=== PATIENT | female | born 1980 | race Hispanic/Latino ===

== ENCOUNTER → 2017-04-18 | Outpatient (CLI) | payer OTHER ==
[~2017-04-18] MED LIST: IBUP80TA PO; LABE20TAB PO; PERCOCET PO; VITAPRTA PO
[2017-04-18 19:28] LABS: BASO % 0.3 % (0.0-1.0); EOS # 0.1 K/mm3 (0.0-0.50); LARGE UNSTAINED CELL # 0.1 K/mm3 (0.0-0.4); LARGE UNSTAINED CELL % 1.2 % (0.0-4.0); LYMPH # 1.8 K/mm3 (1.5-4.5); LYMPH % 16.6 % (24.0-44.0); MEAN CORPUSCULAR HEMOGLOBIN 28.2 pg (27.0-33.0); MEAN CORPUSCULAR HGB CONC 33.1 g/dl (32.0-36.5); MEAN CORPUSCULAR VOLUME 85.3 fl (80.0-96.0); MONO # 0.4 K/mm3 (0.0-0.8); MONO % 3.8 % (0.0-5.0); NEUTROPHILS # 7.8 K/mm3 (1.8-7.7); PLATELET COUNT, AUTOMATED 291 k/mm3 (150-450); RED CELL DISTRIBUTION WIDTH 13.2 % (11.5-14.5); WHITE BLOOD COUNT 10.1 K/mm3 (4.0-10.0)
[2017-04-20 09:37] LABS: HBsAg Prenatal NEGATIVE (NEGATIVE)
== END ==
LOC: M SMT 14:26
PROVIDERS: ATTEND Obstetrics & Gynecology
DX: Z36 Encounter for antenatal screening of mother (principal); Z3A.00 Weeks of gestation of pregnancy not specified

== ENCOUNTER → 2017-05-12 | Outpatient (CLI) | payer OTHER | LOC: M SMT 13:10 | PROVIDERS: ATTEND Obstetrics & Gynecology | DX: Z36 Encounter for antenatal screening of mother (principal); Z3A.00 Weeks of gestation of pregnancy not specified ==

== ENCOUNTER → 2017-05-17 | Outpatient (CLI) | payer MEDICAID, OTHER | LOC: M LAB 07:25 | PROVIDERS: ATTEND Obstetrics & Gynecology | DX: Z36 Encounter for antenatal screening of mother (principal); Z3A.00 Weeks of gestation of pregnancy not specified ==

== ENCOUNTER → 2017-07-13 | Outpatient (REF) | payer OTHER | LOC: M LAB REF 14:25 | PROVIDERS: ATTEND Physician Assistant | DX: J02.9 Acute pharyngitis, unspecified (principal) ==

== ENCOUNTER → 2017-07-15 | Outpatient (CLI) | payer MEDICAID, OTHER ==
--- NOTE | 2017-07-15 11:23 | REP ---
Clinical: Anatomical evaluation. Comparison: None . Findings: Examination demonstrates a single live intrauterine in breech presentation. motion is identified by technologist. Placenta is noted posteriorly and grade zero without evidence for placenta previa or abruption. Amniotic fluid volume is normal. Cervix measures 4.3 cm in length and appears closed. No evidence for nuchal cord. Gestational age by LMP 18 weeks 5-day with BETH 12/11/2017 . Gestational age by current measurements 19 weeks 0 days with BETH 12/09/2017 . FHR equals 139 beats per minute. BPD 4.4 cm 19 weeks 2 day HC 15.8 18 weeks 4 days AC 13.9 cm 19 weeks 2 days FL 2.9 cm 18 weeks 5 day HL 2.8 cm 19 weeks 0 days HC/AC ratio 1.14 Estimated weight 268 grams ( 57th percentile). Anatomical assessment demonstrates normal structures including cranium, choroid plexus, cavum, cerebellum/posterior fossa, lungs, diaphragm, stomach, cord insertion/three-vessel cord, bladder, and extremities. Impression: Single live intrauterine in breech presentation demonstrating appropriate interval growth. Limited evaluation of the facial features, heart/ventricular outflow tracts, kidneys and spine warrants reevaluation and follow-up. Signed by Oscar Anand MD 07/15/2017 11:14 A
== END ==
LOC: M RAD 09:39
PROVIDERS: ATTEND Obstetrics & Gynecology
DX: Z36 Encounter for antenatal screening of mother (principal); Z3A.19 19 weeks gestation of pregnancy

== ENCOUNTER → 2017-08-15 | Outpatient (CLI) | payer OTHER ==
--- NOTE | 2017-08-15 11:07 | REP ---
OBSTETRIC SONOGRAPHY: HISTORY: Supervision of followup anatomy. Comparison study July 15, 2017. FINDINGS: Scanning through the gravid uterus demonstrates a viable single intrauterine gestation in a transverse lie, head to the maternal right. motion is observed and heart rate is recorder 141 beats per minute. A right posterolateral placenta is seen grade 1 without evidence of previa or abruption. Amniotic fluid is subjectively normal. Closed cervical length is 4.8 cm. No extrauterine abnormalities observed. There has been appropriate interval growth. Exam quality is somewhat inhibited by maternal body habitus and position. No abnormality is seen. There is still less than optimal visualization of the heart today and spine. The following additional anatomic structures are identified and felt to be sonographically unremarkable: cranium, cavum, face and profile, lungs, diaphragm, left-sided stomach, abdominal wall cord insertion, three-vessel umbilical cord, kidneys and bladder, upper and lower extremities. BIOMETRY CHART: BPD 5.6 cm = 23 weeks 0 days HC e 21.4 cm = 23 weeks 3 days AC 18.7 cm = 23 weeks 4 days FL 4.8 cm = 25 weeks 6 days HL 4.1 cm = 24 weeks 5 days HC/AC ratio normal 1.14. Cephalic index normal 0.71. Estimated weight 688 grams, 1 pound 8 ounces, 86th percentile for 23 weeks 1 day. IMPRESSION: Viable single intrauterine gestation at 24 weeks 1 day by today's composite sonographic criteria. Expected gestational age estimate based on prior sonography is 23 weeks 3 days. BETH by prior sonography December 09, 2017. cardiac structures and spine still less than optimally seen. Signed by Wayne Lorenzo MD 08/15/2017 01:18 P
== END ==
LOC: M RAD 09:12
PROVIDERS: ATTEND Obstetrics & Gynecology
DX: Z36.89 Encounter for other specified antenatal screening (principal); Z3A.24 24 weeks gestation of pregnancy

== ENCOUNTER → 2017-08-23 | Outpatient (CLI) | payer OTHER ==
[2017-08-23 17:16] LABS: MEAN CORPUSCULAR HEMOGLOBIN 27.4 pg (27.0-33.0); MEAN CORPUSCULAR HGB CONC 32.9 g/dl (32.0-36.5); MEAN CORPUSCULAR VOLUME 83.3 fl (80.0-96.0); RED CELL DISTRIBUTION WIDTH 13.4 % (11.5-14.5); WHITE BLOOD COUNT 10.5 10^3/uL (4.0-10.0)
== END ==
LOC: M SMT 14:28
PROVIDERS: ATTEND Obstetrics & Gynecology
DX: Z36.89 Encounter for other specified antenatal screening (principal); Z3A.00 Weeks of gestation of pregnancy not specified

== ENCOUNTER → 2017-09-15 | Outpatient (CLI) | payer OTHER ==
--- NOTE | 2017-09-15 15:17 | REP ---
Obstetric ultrasound for follow-up anatomy: On prior studies the four-chamber view of the heart, cardiac right and left ventricular outflow tracts and spine were not optimally demonstrate There is a single intrauterine gestation in a breech presentation. There is motion. heart rate is 136 beats per minute. The placenta is fundal and right lateral without previa or abruptio and with grade 1 maturity. The amniotic fluid volume subjectively is normal. The amniotic fluid index is 11.9 (9.4 - 22.7). Gestational age by the ultrasound today is 28 weeks 2 days. Gestational age by the first ultrasound is 27 weeks 6 days with an BETH of 12/09/2017. Gestational age by LMP is 27 weeks 4 days. weight is 1222 grams (2 pounds, 11 ounces). This is the 62nd percentile for 27 weeks 4 days. S/D ratio 4.57 (2.30-3.30) Resistive Index 0.78 (0.59-0.75 Diastolic Velocity 8.3 (>10 cm/sec) . These values are slightly outside their normal ranges and may indicate early fetoplacental circulation compromise. Follow-up is recommended. weight is at the 62nd percentile. The four-chamber view of the heart and the cardiac right and left ventricular outflow tracts are adequately demonstrated and unremarkable. The spine is adequately demonstrated and unremarkable. The remainder of the anatomy previously demonstrated and unremarkable. There are no anomalies. Signed by Ayad Tillman MD 09/15/2017 03:08 P
== END ==
LOC: M RAD 12:16
PROVIDERS: ATTEND Obstetrics & Gynecology
DX: Z34.82 Encounter for supervision of other normal pregnancy, second trimester (principal); Z87.51 Personal history of pre-term labor; Z3A.00 Weeks of gestation of pregnancy not specified

== ENCOUNTER → 2017-10-13 | Outpatient (CLI) | payer OTHER ==
--- NOTE | 2017-10-13 20:41 | REP ---
LIMITED OBSTETRICAL ULTRASOUND: CLINICAL: well being and growth evaluation. COMPARISON: 09/15/2017 FINDINGS: Ultrasound examination demonstrates a single live advanced gestation in breech presentation. motion was identified by technologist. Placenta is noted fundally and grade 1 without evidence for placenta previa or abruption. Amniotic fluid volume is within normal limits. Cervix measures 4.5 cm in length and appears closed. Gestational age by LMP 31 weeks 4 days with estimated date of delivery 12/11/2017. Gestational age by current measurements 30 weeks 4 days with estimated date of delivery 12/18/2017. FHR 129 beats per minute. BPD 7.8 cm = 31 weeks 1 day HC 27.9 cm = 30 weeks 4 days AC 26.3 cm = 30 weeks 3 days FL 5.8 cm = 30 weeks 1 day HL 5.2 cm = 30 weeks 3 days HC/AC ratio 1.06. Estimated weight 1570 grams, 20th percentile based on age by LMP. Biophysical profile score equals 8 out of 8. Amniotic fluid index equals 15.8 cm (8.7 - 24.0). Umbilical cord S/D ratio equals 2.23. IMPRESSION: Single live advanced gestation in breech presentation demonstrating appropriate interval growth. Biophysical profile score equals 8 out of 8. Amniotic fluid volume normal. Signed by Oscar Anand MD 10/14/2017 07:24 A
== END ==
LOC: M RAD 12:46
PROVIDERS: ATTEND Obstetrics & Gynecology
DX: O24.410 Gestational diabetes mellitus in pregnancy, diet controlled (principal); Z3A.31 31 weeks gestation of pregnancy

== ENCOUNTER → 2017-10-19 | Outpatient (CLI) | payer OTHER ==
--- NOTE | 2017-10-19 15:21 | REP ---
OB ULTRASOUND/BIOPHYSICAL PROFILE: Real-time sonographic evaluation of gravid uterus performed. There is a single living intrauterine gestation. Estimated gestational age is 32 weeks 3 days, EDC 12/11/2017. heart rate 142 beats per minute. Amniotic fluid is low, with mild oligohydramnios. ERICH is 4.8, below normal range of 8.5 to 24.3. S/D ratio umbilical artery 4.37 is above normal range of 2.3 to 3.3. RI 0.77 is above normal range of 0.59 to 0.75. S/D ratio middle cerebral artery 4.95 with RI 0.80. position vertex. Biophysical profile score is 8 out of 8. Placenta is posterior and fundal, grade 1 with no previa or abruption. Signed by Ayad Rome MD 10/20/2017 09:15 A
== END ==
LOC: M RAD 13:30
PROVIDERS: ATTEND Obstetrics & Gynecology
DX: O24.410 Gestational diabetes mellitus in pregnancy, diet controlled (principal); Z3A.32 32 weeks gestation of pregnancy

== ENCOUNTER → 2017-10-26 | Outpatient (CLI) | payer OTHER ==
--- NOTE | 2017-10-26 19:52 | REP ---
Clinical: well-being. Biophysical profile. Comparison: 10/19/2017. Findings: Ultrasound examination demonstrates single live A advanced gestation in breech presentation. motion was identified by technologist. Placenta is noted posterior fundal and grade 1 without evidence for placenta previa. Cervix measures 2.7 cm in length and appears closed. Gestational age by LMP: 33 weeks 3 days. heart rate: 140 bpm. Biophysical profile: 8/8. Amniotic fluid index: 12.3 cm (8.2 - 24.6). Umbilical cord SD ratio: 3.09 Impression: Single live advanced gestation in breech presentation. Biophysical profile score equals 8/8. Signed by Oscar Anand MD 10/26/2017 04:43 P
== END ==
LOC: M RAD 13:23
PROVIDERS: ATTEND Obstetrics & Gynecology
DX: O24.410 Gestational diabetes mellitus in pregnancy, diet controlled (principal); Z3A.33 33 weeks gestation of pregnancy

== ENCOUNTER → 2017-11-02 | Outpatient (CLI) | payer OTHER | LOC: M RAD 07:44 | DX: O24.410 Gestational diabetes mellitus in pregnancy, diet controlled (principal); Z3A.31 31 weeks gestation of pregnancy | CPT/HCPCS: 76819 ==

== ENCOUNTER → 2017-11-14 | Outpatient (REF) | payer OTHER | LOC: M LAB REF 17:05 | DX: Z34.83 Encounter for supervision of other normal pregnancy, third trimester (principal) | CPT/HCPCS: 87081 ==

== ENCOUNTER → 2017-11-16 | Outpatient (CLI) | payer OTHER ==
[2017-11-16 11:52] LABS: HEMATOCRIT 38.9 % (36.0-47.0); HEMOGLOBIN 12.8 g/dl (12.0-16.0); MEAN CORPUSCULAR HEMOGLOBIN 27.1 pg (27.0-33.0); MEAN CORPUSCULAR HGB CONC 32.9 g/dl (32.0-36.5); MEAN CORPUSCULAR VOLUME 82.4 fl (80.0-96.0); PLATELET COUNT, AUTOMATED 321 10^3/uL (150-450); RED BLOOD COUNT 4.72 10^6/uL (4.00-5.40); RED CELL DISTRIBUTION WIDTH 14.6 % (11.5-14.5); WHITE BLOOD COUNT 10.7 10^3/uL (4.0-10.0)
[2017-11-16 12:13] LABS: CREATININE, SERUM 0.8 MG/DL (0.6-1.0); TOTAL VOLUME, URINE 1600 ML
[2017-11-16 12:20] LABS: ALBUMIN 2.6 GM/DL (3.2-5.2); ALBUMIN/GLOBULIN RATIO 0.63 (1.00-1.93); ALKALINE PHOSPHATASE 101 U/L (45-117); ALT/SGPT 45 U/L (12-78); ANION GAP 7 MEQ/L (8-16); AST/SGOT 27 U/L (7-37); BILIRUBIN,TOTAL 0.2 MG/DL (0.2-1.0); BLOOD UREA NITROGEN 13 MG/DL (7-18); CALCIUM LEVEL 8.9 MG/DL (8.5-10.1); CARBON DIOXIDE LEVEL 26 MEQ/L (21-32); CHLORIDE LEVEL 107 MEQ/L (98-107); CREATININE FOR GFR 0.79 MG/DL (0.55-1.02); GLOMERULAR FILTRATION RATE > 60.0 (>60); GLUCOSE, FASTING 72 MG/DL (70-105); POTASSIUM SERUM 4.2 MEQ/L (3.5-5.1); SODIUM LEVEL 140 MEQ/L (136-145); TOTAL PROTEIN 6.7 GM/DL (6.4-8.2); URIC ACID 5.8 MG/DL (2.6-6.0)
[2017-11-16 13:04] LABS: CREATININE CLEARANCE, URINE 226.4 ML/MIN (75-115); TOTAL PROTEIN 24 HOUR URINE 268.8 MG/24HR (50-150); URINE TOTAL PROTEIN 16.8 MG/DL (0-12)
== END ==
LOC: M LAB 11:19
DX: O13.3 Gestational [pregnancy-induced] hypertension without significant proteinuria, third trimester (principal); Z3A.00 Weeks of gestation of pregnancy not specified
CPT/HCPCS: 82575

== ENCOUNTER → 2017-11-18 | Outpatient (CLI) | payer OTHER | LOC: M RAD 12:28 | DX: Z36.4 Encounter for antenatal screening for fetal growth retardation (principal); Z3A.36 36 weeks gestation of pregnancy | CPT/HCPCS: 76816 ==

== ENCOUNTER 2017-11-21 12:15 | Inpatient (IN) | payer OTHER ==
[2017-11-21] MEDS: BICITRA 30ML SOLN UDC PO (12:45)
[2017-11-21] MEDS: LR 500 ML IV (13:10)
[2017-11-21] MEDS: LR 1,000 ML IV ×2 (13:11→20:17)
[2017-11-21 13:22] LABS: HEMATOCRIT 41.4 % (36.0-47.0); HEMOGLOBIN 13.7 g/dl (12.0-16.0); MEAN CORPUSCULAR HEMOGLOBIN 27.2 pg (27.0-33.0); MEAN CORPUSCULAR HGB CONC 33.1 g/dl (32.0-36.5); MEAN CORPUSCULAR VOLUME 82.1 fl (80.0-96.0); PLATELET COUNT, AUTOMATED 340 10^3/uL (150-450); RED BLOOD COUNT 5.04 10^6/uL (4.00-5.40); RED CELL DISTRIBUTION WIDTH 14.9 % (11.5-14.5); WHITE BLOOD COUNT 11.1 10^3/uL (4.0-10.0)
[2017-11-21 13:50] LABS: AMPHETAMINES URINE REFLEX NEGATIVE (NEGATIVE); BARBITURATES URINE REFLEX NEGATIVE (NEGATIVE); BENZODIAZEPINES URINE REFLEX NEGATIVE (NEGATIVE); CANNABINOIDS URINE REFLEX NEGATIVE (NEGATIVE); COCAINE METABOLITE URINE REFLE NEGATIVE (NEGATIVE); METHADONE URINE REFLEX NEGATIVE (NEGATIVE); OPIATES URINE REFLEX NEGATIVE (NEGATIVE); PHENCYCLIDINE URINE REFLEX NEGATIVE (NEGATIVE)
[2017-11-21 13:53] LABS: ALT/SGPT 54 U/L (12-78); AST/SGOT 38 U/L (7-37); BILIRUBIN,TOTAL 0.3 MG/DL (0.2-1.0); CREATININE FOR GFR 0.82 MG/DL (0.55-1.02); GLOMERULAR FILTRATION RATE > 60.0 (>60); LDH LACTATE DEHYDROGENASE 190 U/L (84-246); URIC ACID 6.1 MG/DL (2.6-6.0)
[2017-11-21] MEDS ORDERED: ceFAZolin 2 GM/D5W 50 ML IV BAG (J0690 PER 500MG) As Ordered (14:35)
[2017-11-21] MEDS ORDERED: OXYTOCIN INJ 10 UNITS/ML VIAL (J2590) As Ordered (15:15)
[2017-11-21] MEDS ORDERED: ONDANSETRON 4MG/2ML VIAL (J2405) As Ordered (15:15)
[2017-11-21] MEDS ORDERED: dexameTHASONE 4 MG/ML 1ML VIAL (J1100) As Ordered (15:15)
[2017-11-21] MEDS ORDERED: fentaNYL 100 MCG/2 ML INJECTION (J3010) As Ordered (15:16)
[2017-11-21] MEDS ORDERED: MORPHINE PRES-FREE INJ 10 MG/10 ML VIAL (J2274) As Ordered (15:16)
[2017-11-21] MEDS ORDERED: ceFAZolin 1GM INJ (J0690 PER 500MG) As Ordered (16:09)
[2017-11-21] MEDS ORDERED: KETOROLAC 60 MG/2 ML VIAL (J1885) As Ordered (16:19)
[2017-11-21] MEDS ORDERED: PHENYLephrine HCL 500 MCG/5 ML (100MCG/ML) SYRINGE (J2370) As Ordered (17:08)
[2017-11-21] MEDS ORDERED: ePHEDrine INJ 50 MG/ML VIAL As Ordered (17:09)
[2017-11-21] MEDS: OXYTOCIN DRIP 30 UNITS in APPROPRIATE DILUENT 1 EA IV (17:32)
[2017-11-21] MEDS ORDERED: PROMETHAZINE 25 MG TAB PO (17:45)
[2017-11-21] MEDS ORDERED: ONDANSETRON 4MG/2ML VIAL (J2405) IV ×2 (17:45→18:00)
[2017-11-21] MEDS ORDERED: NALBUPHINE HCL 10 MG/ML AMP (J2300) IV (18:00)
[2017-11-21] MEDS ORDERED: fentaNYL 100 MCG/2 ML INJECTION (J3010) IV (18:00)
[2017-11-21] MEDS: MEASLES,MUMPS,RUBELLA VACCINE INJ (MMR-II) (90707) SC (19:09)
[2017-11-21] MEDS: RHOGAM 300 MCG (1500 IU) INJ (J2790) IM (19:10)
[2017-11-21] MEDS: LABETALOL HCL 100 MG/20 ML VIAL IV ×2 (20:37→23:25)
[2017-11-21] MEDS: DOCUSATE SODIUM 100 MG CAP PO (21:00)
[2017-11-21] MEDS: LABETALOL 200 MG TAB PO (21:04)
[2017-11-21] MEDS: KETOROLAC 30 MG/ML VIAL (J1885) IV (22:33)
[2017-11-21] MEDS: PERCOCET 5MG/325MG TAB PO (23:50)
[2017-11-22] MEDS: LR 1,000 ML IV (04:14)
[2017-11-22] MEDS: KETOROLAC 30 MG/ML VIAL (J1885) IV ×2 (04:53→11:12)
[2017-11-22] MEDS: PERCOCET 5MG/325MG TAB PO ×3 (05:00→21:11)
[2017-11-22 07:17] LABS: HEMATOCRIT 32.8 % (36.0-47.0); MEAN CORPUSCULAR HEMOGLOBIN 27.2 pg (27.0-33.0); MEAN CORPUSCULAR HGB CONC 32.6 g/dl (32.0-36.5); MEAN CORPUSCULAR VOLUME 83.5 fl (80.0-96.0); PLATELET COUNT, AUTOMATED 241 10^3/uL (150-450); RED BLOOD COUNT 3.93 10^6/uL (4.00-5.40); RED CELL DISTRIBUTION WIDTH 14.9 % (11.5-14.5); WHITE BLOOD COUNT 9.4 10^3/uL (4.0-10.0)
[2017-11-22 07:21] LABS: HEMOGLOBIN 10.7 g/dl (12.0-16.0)
[2017-11-22] MEDS: DOCUSATE SODIUM 100 MG CAP PO ×2 (09:11→21:00)
[2017-11-22] MEDS: PRENATAL VITAMINS CHEWABLE TABLET PO (09:11)
[2017-11-22] MEDS: LABETALOL 200 MG TAB PO ×2 (09:13→20:59)
[2017-11-22] MEDS: SLF 3 ML SYR IV (14:09)
[2017-11-22] MEDS: IBUPROFEN 800 MG TAB PO (18:00)
[2017-11-23] MEDS: PERCOCET 5MG/325MG TAB PO ×4 (02:33→20:53)
[2017-11-23] MEDS: IBUPROFEN 800 MG TAB PO ×2 (02:33→16:26)
[2017-11-23] MEDS: PRENATAL VITAMINS CHEWABLE TABLET PO (09:00)
[2017-11-23] MEDS: LABETALOL 200 MG TAB PO ×2 (10:13→20:54)
[2017-11-23] MEDS: DOCUSATE SODIUM 100 MG CAP PO ×2 (10:14→20:53)
[2017-11-24] MEDS: IBUPROFEN 800 MG TAB PO ×2 (01:21→09:00)
[2017-11-24] MEDS: PERCOCET 5MG/325MG TAB PO ×2 (01:27→07:17)
[2017-11-24] MEDS: PRENATAL VITAMINS CHEWABLE TABLET PO (09:00)
[2017-11-24] MEDS: DOCUSATE SODIUM 100 MG CAP PO (09:00)
[2017-11-24] MEDS: LABETALOL 200 MG TAB PO (09:00)
== END 2017-11-24 09:40 | disposition home or self-care (01) | DRG 540 ==
LOC: M LDI 12:15 → M OBS 18:44
PROC: 10D00Z1 Extraction of Products of Conception, Low, Open Approach (ICD-10-PCS; principal; 2017-11-21 16:05)
DX: O32.1XX0 Maternal care for breech presentation, not applicable or unspecified (principal); O14.14 Severe pre-eclampsia complicating childbirth; O24.410 Gestational diabetes mellitus in pregnancy, diet controlled; Z3A.37 37 weeks gestation of pregnancy; Z37.0 Single live birth

== ENCOUNTER → 2018-05-23 | Outpatient (REF) | payer OTHER ==
[2018-05-23 14:37] LABS: ALBUMIN 3.5 GM/DL (3.2-5.2); ALBUMIN/GLOBULIN RATIO 0.85 (1.00-1.93); ALKALINE PHOSPHATASE 77 U/L (45-117); ALT/SGPT 35 U/L (12-78); ANION GAP 9 MEQ/L (8-16); AST/SGOT 20 U/L (7-37); BILIRUBIN,TOTAL 0.7 MG/DL (0.2-1.0); BLOOD UREA NITROGEN 16 MG/DL (7-18); CALCIUM LEVEL 8.8 MG/DL (8.5-10.1); CARBON DIOXIDE LEVEL 27 MEQ/L (21-32); CHLORIDE LEVEL 104 MEQ/L (98-107); CHOLESTEROL LEVEL 172 MG/DL (<200); CHOLESTEROL RISK RATIO 3.071 (<5); CREATININE FOR GFR 0.94 MG/DL (0.55-1.30); GLOMERULAR FILTRATION RATE > 60.0 (>60); GLUCOSE, FASTING 108 MG/DL (70-100); HDL CHOLESTEROL 56 MG/DL (>40); LDL CHOLESTEROL 91.4 MG/DL (<100); NON-HDL-C 116 MG/DL; POTASSIUM SERUM 3.8 MEQ/L (3.5-5.1); SODIUM LEVEL 140 MEQ/L (136-145); TOTAL PROTEIN 7.6 GM/DL (6.4-8.2); TRIGLYCERIDES LEVEL 123 MG/DL (<150)
== END ==
LOC: M LAB REF 13:45
DX: I10 Essential (primary) hypertension (principal)

== ENCOUNTER → 2019-02-27 | Outpatient (CLI) | payer OTHER ==
[~2019-02-27] MED LIST changes: +ASPI81TA85 PO; +COLA100C5 PO; +MAPA500T2 PO; +OXYC1TAB23 PO
[2019-02-27 19:47] LABS: TOTAL PROTEIN,RANDOM URINE < 5.0 MG/DL (0.0-12.0)
[2019-02-27 20:23] LABS: ALT/SGPT 21 U/L (12-78); BILIRUBIN,TOTAL 0.2 MG/DL (0.2-1.0); CREATININE FOR GFR 0.71 MG/DL (0.55-1.30); GLOMERULAR FILTRATION RATE > 60.0 (>60); LDH LACTATE DEHYDROGENASE 131 U/L (84-246); URIC ACID 3.5 MG/DL (2.6-6.0)
[2019-02-27 20:41] LABS: HEMOGLOBIN A1c 5.5 %
[2019-02-27 20:57] LABS: CHLAMYDIA DNA AMPLIFICATION NEGATIVE (NEGATIVE); GC DNA AMPLIFICATION NEGATIVE (NEGATIVE)
[2019-02-27 22:16] LABS: HEMATOCRIT 37.3 % (36.0-47.0); HEMOGLOBIN 12.1 g/dl (12.0-15.5); MEAN CORPUSCULAR HEMOGLOBIN 26.8 pg (27.0-33.0); MEAN CORPUSCULAR HGB CONC 32.4 g/dl (32.0-36.5); MEAN CORPUSCULAR VOLUME 82.5 fl (80.0-96.0); RED BLOOD COUNT 4.52 10^6/uL (4.00-5.40); WHITE BLOOD COUNT 7.5 10^3/uL (4.0-10.0)
[2019-02-27 22:17] LABS: BASO % 0.3 % (0.0-1.0); EOS # 0.1 10^3/uL (0.0-0.50); EOS % 1.2 % (0.0-3.0); LYMPH # 1.8 10^3/uL (1.5-4.5); LYMPH % 24.1 % (24.0-44.0); MONO # 0.4 10^3/uL (0.0-0.8); MONO % 5.4 % (0.0-5.0); NEUTROPHILS # 5.1 10^3/uL (1.8-7.7); NEUTROPHILS % 68.6 % (36.0-66.0); PLATELET COUNT, AUTOMATED 280 10^3/uL (150-450)
[2019-02-28 10:03] LABS: RUBELLA IgG QUALITATIVE IMMUNE (IMMUNE)
[2019-02-28 10:31] LABS: HEPATITIS C VIRUS ABY INDEX 0.1 INDEX (<0.8)
[2019-02-28 10:32] LABS: HIV 1&2 SCREEN CENTAUR NEGATIVE (NEGATIVE)
== END ==
LOC: M SMT 14:53
PROVIDERS: ATTEND Obstetrics & Gynecology
DX: Z34.81 Encounter for supervision of other normal pregnancy, first trimester (principal); Z3A.11 11 weeks gestation of pregnancy

== ENCOUNTER → 2019-04-25 | Outpatient (CLI) | payer OTHER ==
--- NOTE | 2019-04-26 15:02 | REP ---
Obstetric ultrasound for anatomy: There is a single intrauterine gestation. position is variable. heart rate is 149 beats per minute. The placenta is posterior. There is no placenta previa or abruptio. Placenta is grade 1 maturity. The amniotic fluid volume subjectively is normal. The cervix measures 3.4 cm length. Gestational age by today's ultrasound is 19 weeks 5 days/BETH 09/14/2019. Gestational age by LMP is 20 weeks 6 days/BETH 09/06/2019. weight is 309 grams/0 pounds, 10 ounces. This is the 45th percentile for 19 weeks 5 days. This is the 10th percentile for 20 weeks 6 days. The following anatomic structures are identified and are unremarkable: Intracranial lateral ventricles, choroid plexus, cavum septum pellucidum, intracranial posterior fossa, lungs, diaphragm, stomach, cord insertion, three-vessel cord, kidneys, bladder, spine and upper extremities. The following structures are suboptimally visualized because of position: face, upper lip, four-chamber view of the heart, cardiac right and left ventricular outflow tracts, lower extremities. A followup study dedicated to these structures might be considered. Otherwise, there are no anomalies. Electronically Signed by Ayad Tillman MD 04/25/2019 03:43 P
== END ==
LOC: M RAD 14:14
PROVIDERS: ATTEND Obstetrics & Gynecology
DX: O10.012 Pre-existing essential hypertension complicating pregnancy, second trimester (principal); Z3A.19 19 weeks gestation of pregnancy

== ENCOUNTER → 2019-07-06 | Outpatient (CLI) | payer OTHER ==
[~2019-07-06] MED LIST changes: +ACET25TA12 PO; +PERC5TAB12 PO; +PRENTAB55 PO
[2019-07-06 16:03] LABS: HEMATOCRIT 35.9 % (36.0-47.0); HEMOGLOBIN 11.7 g/dl (12.0-15.5); MEAN CORPUSCULAR HEMOGLOBIN 27.7 pg (27.0-33.0); MEAN CORPUSCULAR HGB CONC 32.6 g/dl (32.0-36.5); MEAN CORPUSCULAR VOLUME 85.1 fl (80.0-96.0); PLATELET COUNT, AUTOMATED 266 10^3/uL (150-450); RED BLOOD COUNT 4.22 10^6/uL (4.00-5.40)
--- NOTE | 2019-07-06 16:39 | REP ---
Obstetric sonography: History: Essential hypertension. Second trimester sonography. growth study. Findings: Scanning through the gravid uterus demonstrates a viable single intrauterine gestation in a cephalic lie. motion is observed and heart rate is recorded at 142 beats per minute. A posterior grade 1 placenta is seen without evidence of previa or abruption. Amniotic fluid is subjectively normal. Closed cervical length is 4.1 cm measured transabdominally. No extrauterine abnormalities observed. There has been appropriate interval growth. Exam quality is somewhat inhibited by advanced gestational age and position. The following anatomic structures are identified today and felt to be unremarkable: cranium, lungs, four-chamber heart, right ventricular outflow tract view, diaphragm, left-sided stomach, abdominal wall cord insertion, three-vessel cord, kidneys and bladder. Biometry chart: BPD 7.7 cm 30 weeks 5 days Head circumference 27.9 cm 30 weeks 4 days Abdominal circumference 26.1 cm 30 weeks 1 day Femur length 5.7 cm 30 weeks 0 days Humeral length 5.2 cm 30 weeks 2 days HC/AC ratio normal 1.07, cephalic index normal 0.77, estimated weight 1533 grams, 3 pounds 6 ounces, 46 percentile for 30 weeks 0 days. ERICH normal 17.6 cm. SD ratio normal 2.99. Impression: Viable single intrauterine gestation at 30 weeks 2 days by today's composite criteria. Expected gestational age estimate based on prior sonography is 30 weeks 0 days. BETH by prior sonography September 14, 2019. There is appropriate interval growth. Electronically Signed by Wayne Lorenzo MD 07/10/2019 09:43 A
== END ==
LOC: M LAB 13:14
PROVIDERS: ATTEND Obstetrics & Gynecology
DX: Z34.82 Encounter for supervision of other normal pregnancy, second trimester (principal); Z3A.00 Weeks of gestation of pregnancy not specified

== ENCOUNTER → 2019-07-31 | Outpatient (CLI) | payer OTHER ==
[~2019-07-31] MED LIST changes: -ACET25TA12 PO; -PERC5TAB12 PO; -PRENTAB55 PO
--- NOTE | 2019-08-01 06:25 | REP ---
Clinical: well-being. Comparison: 07/06/2019 . Findings: Examination demonstrates a single live intrauterine in cephalic presentation. motion is identified by technologist. Placenta is noted anterior and grade I I without evidence for placenta previa or abruption. Amniotic fluid volume is normal. Cervix measures 4.6 cm in length and appears closed. No evidence for nuchal cord. Gestational age by LMP 34 weeks 5 days with BETH 09/06/2019 . Gestational age by current measurements 34 weeks 1 day with BETH 09/10/2019 . FHR equals 133 beats per minute. BPD 8.8 cm 35 weeks 3 days HC 31.0 cm 34 weeks 5 days AC 30.1 cm 34 weeks 1 day FL 6.4 cm 33 weeks 1 day HL 5.8 cm 33 weeks 5 days HC/AC ratio 1.03 Estimated weight 2327 grams ( 53rd percentile). Amniotic fluid index: 11.1 cm (8.2 - 24.7) Umbilical cord SD ratio: 2.79 (2.00 - 3.00) Biophysical profile score: 8/8 Impression: Single live advanced gestation in cephalic presentation demonstrating appropriate interval growth. Electronically Signed by Oscar Anand MD 08/01/2019 06:16 A
== END ==
LOC: M RAD 15:50
PROVIDERS: ATTEND Obstetrics & Gynecology
DX: Z34.82 Encounter for supervision of other normal pregnancy, second trimester (principal)

== ENCOUNTER → 2019-08-07 | Outpatient (CLI) | payer OTHER ==
--- NOTE | 2019-08-07 16:58 | REP ---
Obstetric ultrasound, third trimester for weekly biophysical profile evaluation. Preexisting essential hypertension complicating . History of labor. Gestational age based on the first ultrasound is 34 weeks 4 days/BETH 09/14/2019. Gestational age by LMP is 35 weeks 5 days/BETH 09/06/2019. There is a single intrauterine gestation in a vertex presentation. The heart rate is 131 beats per minute. The cervix is 3.7 cm in length. Subjectively the amniotic fluid volume is low, suggesting oligohydramnios. Amniotic fluid index is 6.6 (8.0 - 24.9), compatible with oligohydramnios. biophysical profile: Breathing 2.0 Movement 2.0 Tone 2.0 AFV 2.0 Total 8.0 / 8.0 Umbilical cord Doppler: S/D ratio the 2.46 (2.30-3.30) Resistive Index 0.59 (0.59-0.75 Diastolic Velocity 22.0 (>10 cm/sec) Impression: Oligohydramnios. Electronically Signed by Ayad Tillman MD 08/07/2019 04:50 P
== END ==
LOC: M RAD 15:42
PROVIDERS: ATTEND Obstetrics & Gynecology
DX: O09.212 Supervision of pregnancy with history of pre-term labor, second trimester (principal); O10.012 Pre-existing essential hypertension complicating pregnancy, second trimester; Z3A.34 34 weeks gestation of pregnancy

== ENCOUNTER → 2019-08-14 | Outpatient (CLI) | payer OTHER ==
[~2019-08-14] MED LIST changes: +PRENTAB55 PO
--- NOTE | 2019-08-14 21:16 | REP ---
HISTORY: History of labor. COMPARISON: 08/07/2019 biophysical profile was ordered and performed. Multiple ultrasonographic images of the gravid uterus show a single living intrauterine gestation in the cephalic presentation. Doppler interrogation of the heart shows a heart rate of 139 beats per minute. The subjective amniotic fluid volume is within normal limits. The calculated amniotic fluid index is 12.3 with an expected range 7.6 to 24.6. The placenta is fundal and not low lying. There is no placental abnormality. Doppler interrogation of the umbilical artery shows an AB ratio of 2.6. This is within the normal range. biophysical profile: Breathing 2 Movement 2 Tone 2 AFV 2 Total 06/14 IMPRESSION: Limited OB ultrasound with biophysical profile as described above. Electronically Signed by Michael Hammer DO 08/15/2019 02:12 P
== END ==
LOC: M RAD 17:02
PROVIDERS: ATTEND Obstetrics & Gynecology
DX: O09.212 Supervision of pregnancy with history of pre-term labor, second trimester (principal); O10.012 Pre-existing essential hypertension complicating pregnancy, second trimester

== ENCOUNTER → 2019-08-21 | Outpatient (CLI) | payer OTHER ==
--- NOTE | 2019-08-21 18:41 | REP ---
Clinical: well-being. History of labor. Comparison: 08/14/2019 . Findings: Examination demonstrates a single live intrauterine in cephalic presentation. motion is identified by technologist. Placenta is noted posterior and grade I I without evidence for placenta previa or abruption. Amniotic fluid volume is normal. Gestational age by LMP 37 weeks 5 day with BETH 09/06/1990 . Gestational age by current measurements the 37 weeks 1 day with BETH 09/10/2019 . FHR equals 141 beats per minute. BPP equals 8/8 Amniotic fluid index: 7.3 cm (7.4 - 24.1) Umbilical cord SD ratio: 2.38 (1.60 - 2.60). Estimated weight 3105 grams ( 46th percentile). Impression: 1. Single live intrauterine in cephalic presentation demonstrating appropriate interval growth. 2. Biophysical profile score 8/8 3. Amniotic fluid volume is lower limits of normal. Electronically Signed by Oscar Anand MD 08/21/2019 06:32 P
== END ==
LOC: M RAD 15:42
PROVIDERS: ATTEND Obstetrics & Gynecology
DX: O09.212 Supervision of pregnancy with history of pre-term labor, second trimester (principal); O10.012 Pre-existing essential hypertension complicating pregnancy, second trimester; Z3A.37 37 weeks gestation of pregnancy

== ENCOUNTER → 2019-08-23 | Outpatient (REF) | payer OTHER | LOC: M LAB REF 16:49 | PROVIDERS: ATTEND Obstetrics & Gynecology | DX: Z36.85 Encounter for antenatal screening for Streptococcus B (principal); O09.213 Supervision of pregnancy with history of pre-term labor, third trimester; Z3A.00 Weeks of gestation of pregnancy not specified ==

== ENCOUNTER → 2019-08-28 | Outpatient (CLI) | payer OTHER ==
[~2019-08-28] MED LIST changes: +ACET25TA12 PO
--- NOTE | 2019-08-28 17:53 | REP ---
Clinical: well-being. History of labor. Comparison: 08/21/2019 . Findings: Examination demonstrates a single live intrauterine in cephalic presentation. motion is identified by technologist. Placenta is noted posterior/fundal position and grade I I I without evidence for placenta previa or abruption. Amniotic fluid volume is normal. Cervix measures 4.7 cm in length and appears closed. No evidence for nuchal cord. Gestational age by LMP 38 weeks five be with BETH 09/06/2019 . Gestational age by current measurements 37 weeks 4 days with BETH 09/14/2019 . FHR equals 153 beats per minute. Biophysical profile score: 8/8 Amniotic fluid index: 9.4 cm (deepest pocket) Umbilical cord SD ratio: 1.76 Impression: Single live advanced gestation in cephalic presentation demonstrating appropriate amniotic fluid volume and biophysical profile score. Electronically Signed by Oscar Anand MD 08/28/2019 05:45 P
== END ==
LOC: M RAD 15:58
PROVIDERS: ATTEND Obstetrics & Gynecology
DX: O09.212 Supervision of pregnancy with history of pre-term labor, second trimester (principal); O10.012 Pre-existing essential hypertension complicating pregnancy, second trimester; Z3A.37 37 weeks gestation of pregnancy

== ENCOUNTER → 2019-09-04 | Outpatient (CLI) | payer OTHER ==
--- NOTE | 2019-09-04 16:30 | REP ---
Clinical: History of labor Comparison: 08/28/2019 . Findings: Examination demonstrates a single live intrauterine in cephalic presentation. motion is identified by technologist. Placenta is noted posterior/fundal and and grade I I without evidence for placenta previa or abruption. Nuchal cord cannot be excluded. Gestational age by LMP 39 weeks 5 days with BETH 09/06/2019 . FHR equals 133 beats per minute. Biophysical profile score: 8/8 Amniotic fluid index: 13.5 cm (7.1 - 21.8) Umbilical cord SD ratio: 1.95 (1.60 - 2.60) Impression: Biophysical profile score and amniotic fluid volume are normal. Nuchal cord cannot be excluded. Electronically Signed by Oscar Anand MD 09/04/2019 04:22 P
== END ==
LOC: M RAD 15:42
PROVIDERS: ATTEND Obstetrics & Gynecology
DX: Z36.9 Encounter for antenatal screening, unspecified (principal); O09.212 Supervision of pregnancy with history of pre-term labor, second trimester; O10.012 Pre-existing essential hypertension complicating pregnancy, second trimester; Z3A.39 39 weeks gestation of pregnancy

== ENCOUNTER 2019-09-06 06:13 | Inpatient (IN) | payer OTHER ==
[~2019-09-06] VITALS: Ht 180.3 cm; Wt 112.0 kg
[2019-09-06] VITALS (9 sets, daily range): BP systolic 126–142; BP diastolic 62–89
[~2019-09-06 06:13] MED LIST changes: -ACET25TA12 PO
[2019-09-06] MEDS ORDERED: LR 1,000 ML IV ONE (07:00)
[2019-09-06] MEDS ORDERED: LR 1,000 ML IV SCH ×2 (07:00→10:15)
[2019-09-06] MEDS ORDERED: BICITRA 30ML SOLN UDC PO ONE (07:00)
[2019-09-06] MEDS ORDERED: ceFAZolin SOD 2 GM in IV 1 EA IV ONE (07:00)
[2019-09-06] MEDS ORDERED: ACET25TA12 PO (07:14)
[2019-09-06 08:09] LABS: HEMATOCRIT 40.4 % (36.0-47.0); HEMOGLOBIN 13.2 g/dl (12.0-15.5); MEAN CORPUSCULAR HEMOGLOBIN 27.2 pg (27.0-33.0); MEAN CORPUSCULAR HGB CONC 32.7 g/dl (32.0-36.5); MEAN CORPUSCULAR VOLUME 83.1 fl (80.0-96.0); PLATELET COUNT, AUTOMATED 282 10^3/uL (150-450); RED BLOOD COUNT 4.86 10^6/uL (4.00-5.40); WHITE BLOOD COUNT 9.2 10^3/uL (4.0-10.0)
[2019-09-06] MEDS ORDERED: ONDANSETRON 4MG/2ML VIAL (J2405) As Ordered ONE (08:22)
[2019-09-06] MEDS ORDERED: KETOROLAC 60 MG/2 ML VIAL (J1885) As Ordered ONE (08:22)
[2019-09-06] MEDS ORDERED: OXYTOCIN INJ 10 UNITS/ML VIAL (J2590) As Ordered ONE (08:22)
[2019-09-06] MEDS ORDERED: MORPHINE PRES-FREE INJ 10 MG/10 ML VIAL (J2274) As Ordered ONE (08:23)
[2019-09-06] MEDS ORDERED: NALBUPHINE HCL 10 MG/ML AMP (J2300) IV PRN (08:35)
[2019-09-06] MEDS ORDERED: NALOXONE INJ 0.4 MG/1 ML VIAL (J2310) IV PRN ×2 (08:35)
[2019-09-06] MEDS ORDERED: diphenhydrAMINE INJ 50MG/ML VIAL (J1200) IV PRN (08:35)
[2019-09-06] MEDS ORDERED: METOCLOPRAMIDE INJ 10MG/2ML VIAL (J2765) IV PRN ×2 (08:35→10:15)
[2019-09-06] MEDS ORDERED: ONDANSETRON 4MG/2ML VIAL (J2405) IV PRN ×3 (08:35→10:15)
[2019-09-06] MEDS ORDERED: PHENYLephrine HCL 500 MCG/5 ML (100MCG/ML) SYRINGE (J2370) As Ordered ONE (09:30)
[2019-09-06] MEDS ORDERED: ePHEDrine SULFATE 25 MG/5 ML(5MG/ML) SYRINGE As Ordered ONE (09:30)
[2019-09-06] MEDS ORDERED: OXYTOCIN DRIP 30 UNITS in IV 1 EA IV SCH (10:02)
[2019-09-06] MEDS ORDERED: KETOROLAC 30 MG/ML VIAL (J1885) IV PRN (10:15)
[2019-09-06] MEDS ORDERED: fentaNYL 100 MCG/2 ML INJECTION (J3010) IV PRN (10:15)
[2019-09-06] MEDS ORDERED: PERCOCET 5MG/325MG TAB PO PRN ×2 (10:15)
[2019-09-06] MEDS ORDERED: MEPERIDINE INJ 25 MG/ML VIAL (J2175) IV PRN (10:15)
[2019-09-06] MEDS ORDERED: RHOGAM 300 MCG (1500 IU) INJ (J2790) IM SCH (10:15)
[2019-09-06] MEDS ORDERED: MEASLES,MUMPS,RUBELLA VACCINE INJ (MMR-II) (90707) SC SCH (10:15)
[2019-09-06] MEDS ORDERED: MOM 30ML SUSPENSION UDC PO PRN (10:15)
[2019-09-06] MEDS ORDERED: OXYTOCIN 30 UNITS IN 0.9% NaCl 500ML IV BAG (J2590) As Ordered ONE (11:03)
[2019-09-06] MEDS: LABETALOL 100 MG TAB PO SCH (12:33)
--- NOTE | 2019-09-06 15:13 | RO ---
DATE OF PROCEDURE: 09/06/2019 PREOPERATIVE DIAGNOSES: 1. Chronic hypertension. 2. History of prior section. 3. Intrauterine at 38 weeks. POSTOPERATIVE DIAGNOSES: 1. Chronic hypertension. 2. History of prior section. 3. Intrauterine at 38 weeks. PROCEDURE PERFORMED: Repeat section. SURGEON: Brook Goodwin MD ASSORTMENT PLANNER: Massimo Jones MD ANESTHESIA: Spinal. ESTIMATED BLOOD LOSS: 500 mL. IV FLUIDS: 1600 mL of lactated Ringer's solution. URINE OUTPUT: 10 mL. OPERATIVE FINDINGS: Live-born male infant, score 7 and 8. Weight was 3860 grams (8 pounds 8 ounces). PREOPERATIVE ANTIBIOTICS: 2 grams of Ancef. SPECIMENS: None. DESCRIPTION OF OPERATION: After informed consent was obtained and written consent was reviewed, the patient brought to the operating room. Dictation ended
[2019-09-06] MEDS: KETOROLAC 30 MG/ML VIAL (J1885) IV SCH ×2 (15:35→21:00)
[2019-09-06] MEDS: LR 1,000 ML IV SCH ×2 (15:42→20:59)
--- NOTE | 2019-09-06 15:59 | RO ---
DATE OF PROCEDURE: 09/06/2019 PREOPERATIVE DIAGNOSES: 1. Gestational hypertension. 2. Intrauterine at 38 weeks. 3. History of prior section. POSTOPERATIVE DIAGNOSES: 1. Gestational hypertension. 2. Intrauterine at 38 weeks. 3. History of prior section. PROCEDURE PERFORMED: Repeat section. SURGEON: Brook Goodwin MD SENIOR MECHANICAL PROJECT MANAGER: Massimo Jones MD ANESTHESIA: Spinal. ESTIMATED BLOOD LOSS: 500 mL. INTRAVENOUS FLUIDS: 1600 of lactated Ringer's solution. URINE OUTPUT: 10 mL. OPERATIVE FINDINGS: Live born male infant, scores 7 and 8, weight was 3860 grams or 8 pounds 8 ounces. SPECIMENS: None. PREOPERATIVE ANTIBIOTICS: 2 grams of Ancef. DESCRIPTION OF OPERATION: After informed consent was obtained and written consent was reviewed, the patient brought to operating room where spinal anesthesia was placed. She was then placed in supine position with left lateral tilt. A Dodge catheter was placed and set to gravity. She was then prepped and draped in normal sterile fashion. A time out in the operating room was then performed identifying the patient, procedure be performed as well as drug allergies. Anesthesia was tested and deemed to be adequate. A Pfannenstiel skin incision was then made and this was along the previous skin incision and this was carried down to the rectus fascia. The fascia was scored and this incision was extended bilaterally. The fascia was then dissected off the underlying rectus muscles both superiorly and inferiorly. The rectus muscles were then in the midline. The peritoneum was then entered sharply. Bladder blade was then placed, Mobius retractor was then inserted, lower uterine segment was then incised, amniotomy was then productive of clear fluid. This incision was then extended manually, head was brought to the level of the incision atraumatically and delivered along with shoulders and corpus. Cord was clamped times two and was taken over the warmer with a good cry. Placenta was then delivered grossly intact. Uterus cleared of all clots and debris. The uterine incision was then closed using 0 Vicryl in a running locking fashion followed by second layer for imbrication in a running nonlocking fashion. Several [id number] stitches were placed for hemostasis. The abdomen was then suctioned. The surgical sites were inspected and noted be hemostatic. The anterior peritoneum was then re-approximated using 3-0 Vicryl. Rectus muscles were then re-approximated 3-0 Vicryl. The fascia was then closed using 0 Vicryl in a running nonlocking fashion. Subcutaneous tissue was then irrigated and suction. Subcutaneous tissue was then re-approximated using 3-0 Vicryl. Several subdermal stitches were placed with 3-0 Vicryl and the skin was closed with 4-0 Monocryl in a subcuticular fashion. Incision was then clean and dry and was dressed. The patient was then taken to recovery in stable condition. Counts correct. Dr. Jones was my certified surgical assistant played an essential role during surgery, he assisted with tissue identification, retraction, as well as delivery of the , and wound closure.
[2019-09-06] MEDS: DOCUSATE SODIUM 100 MG CAP PO SCH (20:59)
[2019-09-07 02:00] VITALS: BP 117/63
[2019-09-07] MEDS: LR 1,000 ML IV SCH (02:52)
[2019-09-07] MEDS: PERCOCET 5MG/325MG TAB PO PRN ×4 (02:52→18:42)
[2019-09-07] MEDS: KETOROLAC 30 MG/ML VIAL (J1885) IV SCH (04:43)
[2019-09-07 06:00] VITALS: BP 130/72
[2019-09-07 07:33] LABS: HEMATOCRIT 35.9 % (36.0-47.0); HEMOGLOBIN 11.4 g/dl (12.0-15.5); MEAN CORPUSCULAR HGB CONC 31.8 g/dl (32.0-36.5); MEAN CORPUSCULAR VOLUME 84.9 fl (80.0-96.0); PLATELET COUNT, AUTOMATED 220 10^3/uL (150-450); RED BLOOD COUNT 4.23 10^6/uL (4.00-5.40)
[2019-09-07] MEDS ORDERED: IBUP80TA PO (07:39)
[2019-09-07] MEDS ORDERED: PERCOCET PO (07:40)
[2019-09-07] MEDS: PRENATAL VITAMINS CHEWABLE TABLET PO SCH (08:41)
[2019-09-07] MEDS: DOCUSATE SODIUM 100 MG CAP PO SCH ×2 (08:42→20:29)
[2019-09-07] MEDS: LABETALOL 100 MG TAB PO SCH (08:42)
[2019-09-07] MEDS ORDERED: SLF 3 ML SYR IV PRN (09:00)
[2019-09-07 10:00] VITALS: BP 122/78
[2019-09-07] MEDS: IBUPROFEN 800 MG TAB PO SCH ×2 (11:29→20:29)
[2019-09-07 14:00] VITALS: BP 130/75
[2019-09-07] MEDS: SLF 3 ML SYR IV SCH ×2 (14:00→22:00)
[2019-09-07 18:00] VITALS: BP 141/87
[2019-09-07 22:00] VITALS: BP 134/70
[2019-09-08 02:00] VITALS: BP 135/70
[2019-09-08] MEDS: PERCOCET 5MG/325MG TAB PO PRN ×5 (02:15→23:59)
[2019-09-08] MEDS: IBUPROFEN 800 MG TAB PO SCH ×3 (04:27→19:39)
[2019-09-08 05:45] VITALS: BP 130/64
[2019-09-08] MEDS: SLF 3 ML SYR IV SCH ×3 (06:00→20:05)
--- NOTE | 2019-09-08 07:45 | IPNPDOC ---
Text Note Date of Service The patient was seen on 09/08/19. NOTE POstop Feels well. Adequate pain management. Breast and bottle feeding. Voiding QS VSS, afebrile, normotensive Breasts soft, nipples intact Fundus firm, NT Dressing intact, old drainage noted Lochia rubra light without odor PO #2, routine care Anticipate discharge tomorrow. VS,Fishbone, I+O VS, Fishbone, I+O Vital Signs Date Time Temp Pulse Resp B/P (MAP) Pulse Ox O2 Delivery O2 Flow Rate FiO2 09/08/19 06:50 18 09/08/19 05:45 98.3 80 130/64 (86) 09/07/19 10:00 99 09/07/19 07:48 Room Air I&O- Last 24 Hours up to 6 AM 09/08/19 06:00 Output Total 200 ml Balance -200 ml Carey Qiu CNM Sep 08, 2019 07:45
[2019-09-08 08:00] VITALS: BP 146/80
[2019-09-08] MEDS: DOCUSATE SODIUM 100 MG CAP PO SCH ×2 (08:57→19:39)
[2019-09-08] MEDS: PRENATAL VITAMINS CHEWABLE TABLET PO SCH (08:57)
[2019-09-08] MEDS: LABETALOL 100 MG TAB PO SCH (08:57)
[2019-09-08 10:00] VITALS: BP 136/76
[2019-09-08 17:58] VITALS: BP 151/78
[2019-09-09] MEDS: IBUPROFEN 800 MG TAB PO SCH (03:15)
[2019-09-09] MEDS: PERCOCET 5MG/325MG TAB PO PRN ×2 (03:17→08:09)
[2019-09-09 06:00] VITALS: BP 138/84
[2019-09-09] MEDS: SLF 3 ML SYR IV SCH (06:00)
[2019-09-09 08:08] VITALS: BP 138/84
[2019-09-09] MEDS: PRENATAL VITAMINS CHEWABLE TABLET PO SCH (08:08)
[2019-09-09] MEDS: LABETALOL 100 MG TAB PO SCH (08:08)
[2019-09-09] MEDS: DOCUSATE SODIUM 100 MG CAP PO SCH (08:09)
--- NOTE | 2019-09-09 19:09 | DSES ---
DATE OF ADMISSION: 09/06/2019 DATE OF DISCHARGE: 09/09/2019 HISTORY: 38-year-old female at 38 weeks gestation presents for repeat section. Indication for delivery less than 39 weeks is gestational hypertension requiring medication with labetalol. She has a history of prior section. HOSPITAL COURSE: On 09/06/2019, the patient underwent repeat section for an 8 pound 8 ounce male . Procedure was without complication. Her postoperative course was unremarkable. She had adequate return of bladder and bowel function. Her postoperative hemoglobin was 11.4 grams/dL. Her blood pressure was stable postoperatively. She is deemed stable for discharge on postoperative day #3. ADMISSION DIAGNOSIS: 38 weeks, gestational hypertension. DISCHARGE DIAGNOSIS: Delivered. PROCEDURE: Repeat low transverse section. DISPOSITION: The patient will followup with Dr. Goodwin in 2 weeks. Instructions were reviewed.
[2019-09-13] MEDS ORDERED: PERC5TAB12 PO (16:06)
== END 2019-09-09 10:35 | disposition home or self-care (01) | DRG 540 ==
LOC: M LDI 06:13 → M OBS 11:40
PROVIDERS: ADMIT Obstetrics & Gynecology; ATTEND Obstetrics & Gynecology
PROC: 10D00Z1 Extraction of Products of Conception, Low, Open Approach (ICD-10-PCS; principal; 2019-09-06 08:30)
DX: O13.4 Gestational [pregnancy-induced] hypertension without significant proteinuria, complicating childbirth (principal); O34.211 Maternal care for low transverse scar from previous cesarean delivery; Z3A.38 38 weeks gestation of pregnancy; Z37.0 Single live birth

== ENCOUNTER → 2020-07-10 | Outpatient (REF) | payer OTHER ==
[~2020-07-10] MED LIST changes: +ACET25TA12 PO; -ASPI81TA85 PO; +ASPI81TA86 PO; +LABE10TAB; +MULTTAB20 PO; +PERC5TAB12 PO
[2020-07-10 12:55] LABS: BASO # 0.1 10^3/uL (0.0-0.2); BASO % 0.7 % (0.0-1.0); EOS # 0.1 10^3/uL (0.0-0.5); EOS % 1.3 % (0.0-3.0); HEMATOCRIT 39.5 % (36.0-47.0); HEMOGLOBIN 12.6 g/dl (12.0-15.5); LYMPH # 1.7 10^3/uL (1.5-5.0); MEAN CORPUSCULAR HGB CONC 31.9 g/dl (32.0-36.5); MEAN CORPUSCULAR VOLUME 84.6 fl (80.0-96.0); MONO # 0.5 10^3/uL (0.0-0.8); NEUTROPHILS # 5.2 10^3/uL (1.5-8.5); NEUTROPHILS % 69.6 % (36.0-66.0); PLATELET COUNT, AUTOMATED 314 10^3/uL (150-450); RED BLOOD COUNT 4.67 10^6/uL (4.00-5.40); WHITE BLOOD COUNT 7.5 10^3/uL (4.0-10.0)
[2020-07-10 13:01] LABS: ALBUMIN 3.4 GM/DL (3.2-5.2); ALT/SGPT 30 U/L (12-78); BILIRUBIN,TOTAL 0.6 MG/DL (0.2-1.0); BLOOD UREA NITROGEN 13 MG/DL (7-18); CALCIUM LEVEL 8.8 MG/DL (8.5-10.1); CARBON DIOXIDE LEVEL 27 MEQ/L (21-32); CHLORIDE LEVEL 106 MEQ/L (98-107); CHOLESTEROL LEVEL 176 MG/DL (<200); CHOLESTEROL RISK RATIO 3.142 (<5); CREATININE FOR GFR 0.86 MG/DL (0.55-1.30); FREE T4 1.01 NG/DL (0.76-1.46); GLOMERULAR FILTRATION RATE > 60.0 (>60); GLUCOSE, FASTING 97 MG/DL (70-100); HDL CHOLESTEROL 56 MG/DL (>40); LDL CHOLESTEROL 102 MG/DL (<100); NON-HDL-C 120 MG/DL; SODIUM LEVEL 138 MEQ/L (136-145); TOTAL PROTEIN 7.4 GM/DL (6.4-8.2); TRIGLYCERIDES LEVEL 89 MG/DL (<150)
[2020-07-10 13:21] LABS: TOTAL 25(OH) VITAMIN D 17.1 NG/ML (30.0-100.0)
[2020-07-10 16:18] LABS: HEMOGLOBIN A1c 5.3 %
== END ==
LOC: M LAB REF 09:40
PROVIDERS: ATTEND Family Medicine Addiction Medicine
DX: M79.606 Pain in leg, unspecified (principal); I10 Essential (primary) hypertension; R19.7 Diarrhea, unspecified; M79.641 Pain in right hand; Z68.42 Body mass index [BMI] 45.0-49.9, adult; E66.01 Morbid (severe) obesity due to excess calories

== ENCOUNTER 2020-08-06 09:19 | Emergency (ER) | payer OTHER ==
[~2020-08-06] VITALS: Ht 180.3 cm; Wt 153.6 kg
[~2020-08-06 09:19] MED LIST changes: -LABE10TAB; -MULTTAB20 PO
[2020-08-06] MEDS ORDERED: LABE10TAB (09:31)
[2020-08-06] MEDS ORDERED: MULTTAB20 PO (09:31)
[2020-08-06 10:12] LABS: BASO % 0.4 % (0.0-1.0); EOS # 0.1 10^3/uL (0.0-0.5); EOS % 1.3 % (0.0-3.0); HEMATOCRIT 37.1 % (36.0-47.0); HEMOGLOBIN 11.9 g/dl (12.0-15.5); LYMPH # 1.1 10^3/uL (1.5-5.0); LYMPH % 15.4 % (24.0-44.0); MEAN CORPUSCULAR HGB CONC 32.1 g/dl (32.0-36.5); MEAN CORPUSCULAR VOLUME 84.1 fl (80.0-96.0); MONO # 0.4 10^3/uL (0.0-0.8); MONO % 5.9 % (0.0-5.0); NEUTROPHILS # 5.4 10^3/uL (1.5-8.5); NEUTROPHILS % 76.7 % (36.0-66.0); PLATELET COUNT, AUTOMATED 291 10^3/uL (150-450); RED BLOOD COUNT 4.41 10^6/uL (4.00-5.40); WHITE BLOOD COUNT 7.1 10^3/uL (4.0-10.0)
[2020-08-06 10:49] LABS: BLOOD UREA NITROGEN 12 MG/DL (7-18); CALCIUM LEVEL 8.7 MG/DL (8.5-10.1); CARBON DIOXIDE LEVEL 28 MEQ/L (21-32); CHLORIDE LEVEL 107 MEQ/L (98-107); GLOMERULAR FILTRATION RATE > 60.0 (>60); GLUCOSE, FASTING 116 MG/DL (70-100); HCG, SERUM QUANTITATIVE 13 MIU/ML; POTASSIUM SERUM 4.1 MEQ/L (3.5-5.1); SODIUM LEVEL 139 MEQ/L (136-145)
--- NOTE | 2020-08-06 11:50 | REPVR ---
PROCEDURE INFORMATION: Exam: US First Trimester, Transabdominal and US , Transvaginal Exam date and time: 08/06/2020 11:17 AM Age: 39 years old Clinical indication: Gestational age (in weeks): 5 weeks 4 days; Antepartum complications; Other: Spotting; ; Prior surgery; Surgery date: 6+ months; Additional info: Vaginal bleeding. History of Caesarean section. Beta-hCG 13. TECHNIQUE: Imaging protocol: Real-time transabdominal obstetrical ultrasound of the maternal pelvis and a first trimester , less than 14 weeks 0 days, with image documentation. Transvaginal imaging was used for better evaluation of the fetus and adnexa. COMPARISON: No relevant prior studies available. FINDINGS: Gestation: No intrauterine gestational sac is identified. MATERNAL: Uterus: The uterus measures 8.2 x 4.1 x 5.9 cm. Scar from prior Caesarean section noted at the lower uterine segment anterior myometrium. The endometrial stripe measures 0.6 cm. Cervix: Unremarkable. Right adnexa: The right ovary measures 2.2 x 1.9 x 1.6 cm. The right ovary demonstrates color Doppler blood flow. The right ovary demonstrates spectral Doppler blood flow with low resistance waveform. No evidence of right ovarian torsion. No right adnexal mass is imaged. Left adnexa: The left ovary measures 2.3 x 1.5 x 1.6 cm. The left ovary demonstrates color Doppler blood flow. The left ovary demonstrates spectral Doppler blood flow with low resistance waveform. No evidence of left ovarian torsion. No left adnexal mass is imaged. Intraperitoneal space: No free intraperitoneal fluid is imaged. Urinary bladder: The visualized urinary bladder is unremarkable. IMPRESSION: of unknown location. No intrauterine is identified. The differential diagnosis includes normal early intrauterine , failed 1st trimester , and nonvisualized ectopic . Short-term followup beta-hCG and ultrasound is needed. Electronically signed by: Frandy Sterling On 08/06/2020 11:50:39 AM
[2020-08-06 12:23] VITALS: BP 143/91
== END 2020-08-06 12:43 | disposition home or self-care (01) ==
LOC: M ED 09:19
DX: O20.0 Threatened abortion (principal); O99.340 Other mental disorders complicating pregnancy, unspecified trimester; F31.9 Bipolar disorder, unspecified; Z87.59 Personal history of other complications of pregnancy, childbirth and the puerperium; Z3A.00 Weeks of gestation of pregnancy not specified

== ENCOUNTER → 2020-08-08 | Outpatient (CLI) | payer OTHER ==
[~2020-08-08] MED LIST changes: +LABE10TAB; +MULTTAB20 PO
== END ==
LOC: M PLALAB 13:39
PROVIDERS: ATTEND Advanced Practice Midwife
DX: Z32.00 Encounter for pregnancy test, result unknown (principal)

== ENCOUNTER → 2020-08-11 | Outpatient (REF) | payer OTHER | LOC: M PLALAB 10:25 | PROVIDERS: ATTEND Obstetrics & Gynecology | DX: O20.0 Threatened abortion (principal) ==

== ENCOUNTER → 2020-08-13 | Outpatient (REF) | payer OTHER | LOC: M PLALAB 08:18 | PROVIDERS: ATTEND Obstetrics & Gynecology | DX: O20.0 Threatened abortion (principal) ==

== ENCOUNTER → 2020-08-13 | Outpatient (CLI) | payer OTHER ==
[2020-08-13 18:25] LABS: HEMATOCRIT 35.4 % (36.0-47.0); HEMOGLOBIN 11.2 g/dl (12.0-15.5); MEAN CORPUSCULAR HEMOGLOBIN 26.7 pg (27.0-33.0); MEAN CORPUSCULAR HGB CONC 31.6 g/dl (32.0-36.5); MEAN CORPUSCULAR VOLUME 84.3 fl (80.0-96.0); PLATELET COUNT, AUTOMATED 275 10^3/uL (150-450); WHITE BLOOD COUNT 6.6 10^3/uL (4.0-10.0)
[2020-08-13 18:50] LABS: ALBUMIN 3.5 GM/DL (3.2-5.2); ALT/SGPT 24 U/L (12-78); BILIRUBIN,TOTAL 0.2 MG/DL (0.2-1.0); BLOOD UREA NITROGEN 15 MG/DL (7-18); CALCIUM LEVEL 9.3 MG/DL (8.5-10.1); CARBON DIOXIDE LEVEL 29 MEQ/L (21-32); CHLORIDE LEVEL 108 MEQ/L (98-107); CREATININE FOR GFR 0.89 MG/DL (0.55-1.30); GLOMERULAR FILTRATION RATE > 60.0 (>60); GLUCOSE, FASTING 86 MG/DL (70-100); HCG, SERUM QUANTITATIVE 14 MIU/ML; POTASSIUM SERUM 4.2 MEQ/L (3.5-5.1); SODIUM LEVEL 141 MEQ/L (136-145); TOTAL PROTEIN 7.4 GM/DL (6.4-8.2)
== END ==
LOC: M LAB 17:46
PROVIDERS: ATTEND Obstetrics & Gynecology
DX: O20.0 Threatened abortion (principal); Z3A.00 Weeks of gestation of pregnancy not specified

== ENCOUNTER → 2020-08-15 | Outpatient (REF) | payer OTHER | LOC: M PLALAB 09:09 | PROVIDERS: ATTEND Obstetrics & Gynecology | DX: O20.0 Threatened abortion (principal); Z3A.00 Weeks of gestation of pregnancy not specified ==

== ENCOUNTER → 2020-08-18 | Outpatient (CLI) | payer OTHER ==
[2020-08-18 15:01] LABS: APPEARANCE, URINE CLEAR (CLEAR); BACTERIA, URINE AUTO NEGATIVE (NEGATIVE); BILIRUBIN, URINE AUTO NEGATIVE (NEGATIVE); BLOOD, URINE BLOOD NEGATIVE (NEGATIVE); COLOR, URINE COLORLESS (YELLOW); GLUCOSE, URINE (UA) AUTO NEGATIVE (NEGATIVE); KETONE, URINE AUTO NEGATIVE (NEGATIVE); LEUKOCYTE ESTERASE, URINE AUTO NEGATIVE (NEGATIVE); NITRITE, URINE AUTO NEGATIVE (NEGATIVE); PROTEIN, URINE AUTO NEGATIVE (NEGATIVE); RBC, URINE AUTO 0 /HPF (0-3); SPECIFIC GRAVITY URINE AUTO 1.001 (1.002-1.035); SQUAMOUS EPITHELIAL CELL UR AU 0 /HPF (0-6); UROBILINOGEN, URINE AUTO 0.2 mg/dL (0.0-2.0); WBC, URINE AUTO 0 /HPF (0-3)
[2020-08-18 15:03] LABS: HEMATOCRIT 38.5 % (36.0-47.0); HEMOGLOBIN 12.3 g/dl (12.0-15.5); MEAN CORPUSCULAR HEMOGLOBIN 26.8 pg (27.0-33.0); MEAN CORPUSCULAR HGB CONC 31.9 g/dl (32.0-36.5); MEAN CORPUSCULAR VOLUME 83.9 fl (80.0-96.0); PLATELET COUNT, AUTOMATED 285 10^3/uL (150-450); RED BLOOD COUNT 4.59 10^6/uL (4.00-5.40); WHITE BLOOD COUNT 6.9 10^3/uL (4.0-10.0)
[2020-08-18 15:25] LABS: ALBUMIN 3.6 GM/DL (3.2-5.2); ALT/SGPT 22 U/L (12-78); BILIRUBIN,TOTAL 0.4 MG/DL (0.2-1.0); BLOOD UREA NITROGEN 13 MG/DL (7-18); CALCIUM LEVEL 9.2 MG/DL (8.5-10.1); CARBON DIOXIDE LEVEL 27 MEQ/L (21-32); CHLORIDE LEVEL 105 MEQ/L (98-107); GLOMERULAR FILTRATION RATE > 60.0 (>60); GLUCOSE, FASTING 85 MG/DL (70-100); HCG, SERUM QUANTITATIVE 5 MIU/ML; POTASSIUM SERUM 4.2 MEQ/L (3.5-5.1); SODIUM LEVEL 140 MEQ/L (136-145); TOTAL PROTEIN 7.3 GM/DL (6.4-8.2)
== END ==
LOC: M LAB 13:50
PROVIDERS: ATTEND Obstetrics & Gynecology
DX: O00.90 Unspecified ectopic pregnancy without intrauterine pregnancy (principal); Z3A.00 Weeks of gestation of pregnancy not specified

== ENCOUNTER → 2020-08-18 | Outpatient (REF) | payer OTHER | LOC: M PLALAB 11:17 | PROVIDERS: ATTEND Obstetrics & Gynecology | DX: O00.90 Unspecified ectopic pregnancy without intrauterine pregnancy (principal) ==

== ENCOUNTER → 2020-12-17 | Outpatient (REF) | payer OTHER ==
[~2020-12-17] MED LIST changes: +LABE100T4; -LABE10TAB
[2020-12-17 13:55] LABS: BASO % 0.6 % (0.0-1.0); EOS # 0.1 10^3/uL (0.0-0.5); EOS % 2.7 % (0.0-3.0); HEMATOCRIT 40.6 % (36.0-47.0); HEMOGLOBIN 12.7 g/dl (12.0-15.5); LYMPH # 1.4 10^3/uL (1.5-5.0); LYMPH % 28.4 % (24.0-44.0); MEAN CORPUSCULAR HEMOGLOBIN 26.5 pg (27.0-33.0); MEAN CORPUSCULAR HGB CONC 31.3 g/dl (32.0-36.5); MEAN CORPUSCULAR VOLUME 84.8 fl (80.0-96.0); MONO # 0.3 10^3/uL (0.0-0.8); MONO % 6.8 % (0.0-5.0); NEUTROPHILS % 61.3 % (36.0-66.0); PLATELET COUNT, AUTOMATED 290 10^3/uL (150-450); RED BLOOD COUNT 4.79 10^6/uL (4.00-5.40); WHITE BLOOD COUNT 4.8 10^3/uL (4.0-10.0)
[2020-12-17 14:28] LABS: BLOOD UREA NITROGEN 14 MG/DL (7-18); CREATININE FOR GFR 0.94 MG/DL (0.55-1.30); GLUCOSE, FASTING 93 MG/DL (70-100)
[2020-12-17 14:29] LABS: ALBUMIN 3.7 GM/DL (3.2-5.2); ALT/SGPT 36 U/L (12-78); BILIRUBIN,TOTAL 0.4 MG/DL (0.2-1.0); CARBON DIOXIDE LEVEL 28 MEQ/L (21-32); CHLORIDE LEVEL 104 MEQ/L (98-107); CHOLESTEROL LEVEL 191 MG/DL (<200); CHOLESTEROL RISK RATIO 3.131 (<5); GLOMERULAR FILTRATION RATE > 60.0 (>58); HDL CHOLESTEROL 61 MG/DL (>40); LDL CHOLESTEROL 111 MG/DL (<100); NON-HDL-C 130 MG/DL; POTASSIUM SERUM 4.4 MEQ/L (3.5-5.1); SODIUM LEVEL 140 MEQ/L (136-145); TOTAL PROTEIN 7.3 GM/DL (6.4-8.2); TRIGLYCERIDES LEVEL 93 MG/DL (<150)
[2020-12-17 14:30] LABS: FOLATE 14.9 NG/ML; VITAMIN B12 LEVEL 419 PG/ML
== END ==
LOC: M LAB REF 13:33
PROVIDERS: ATTEND Physician Assistant
DX: I10 Essential (primary) hypertension (principal)

== ENCOUNTER → 2021-06-08 | Outpatient (CLI) | payer OTHER ==
--- NOTE | 2021-06-08 12:08 | REP ---
INDICATION: LOW BACK PAIN. COMPARISON: None. TECHNIQUE: Three-view thoracic spine series was obtained. FINDINGS: The intervertebral disc spaces of the thoracic spine are preserved. The thoracic vertebral bodies are normal. There is no scoliosis or kyphosis. The paravertebral soft tissues are normal. IMPRESSION: Normal thoracic spine. <Electronically signed by Poli Madrigal > 06/08/21 [id number]
--- NOTE | 2021-06-08 12:12 | REP ---
INDICATION: LOW BACK PAIN. COMPARISON: None. TECHNIQUE: Three views of the lumbar spine were obtained. FINDINGS: The intervertebral disc spaces are preserved. There is maintenance of the normal lumbar lordosis. There are no compression fractures. There is no spondylolisthesis. The SI joints are normal. The perivertebral soft tissues are normal. IMPRESSION: Normal lumbar spine. <Electronically signed by Poli Madrigal > 06/08/21 [id number]
== END ==
LOC: M PLAIMG 10:19 → M PLALAB 10:19
PROVIDERS: ATTEND Physician Assistant
DX: M54.5 Low back pain (principal)

== ENCOUNTER 2022-04-05 13:59 | Emergency (ER) | payer OTHER ==
[~2022-04-05] VITALS: Ht 180.3 cm; Wt 147.4 kg
[2022-04-05 14:00] VITALS: BP 153/88
[2022-04-05] MEDS ORDERED: IBUPROFEN 800 MG TAB PO ONE (15:10)
== END 2022-04-05 15:22 | disposition home or self-care (01) ==
LOC: M ED 13:59
DX: S93.402A Sprain of unspecified ligament of left ankle, initial encounter (principal); W10.9XXA Fall (on) (from) unspecified stairs and steps, initial encounter; Y92.9 Unspecified place or not applicable; Y93.9 Activity, unspecified; Y99.9 Unspecified external cause status

== ENCOUNTER → 2022-09-14 | Outpatient (CLI) | payer OTHER ==
[~2022-09-14] MED LIST changes: -LABE100T4; +LABE100T6
[2022-09-14 20:08] LABS: HEMOGLOBIN A1c 5.3 %
== END ==
LOC: M WUC 10:38
PROVIDERS: ATTEND Surgery
DX: Z86.39 Personal history of other endocrine, nutritional and metabolic disease (principal)

== ENCOUNTER → 2023-03-07 | Outpatient (CLI) | payer MEDICAID, OTHER | LOC: M PLALAB 10:00 | PROVIDERS: ATTEND Obstetrics & Gynecology | DX: O36.80X1 Pregnancy with inconclusive fetal viability, fetus 1 (principal) ==

== ENCOUNTER → 2023-03-09 | Outpatient (CLI) | payer OTHER | LOC: M WUC 10:34 | PROVIDERS: ATTEND Obstetrics & Gynecology | DX: O36.80X1 Pregnancy with inconclusive fetal viability, fetus 1 (principal) ==

== ENCOUNTER → 2023-06-29 | Outpatient (CLI) | payer OTHER ==
[2023-06-29 18:00] LABS: BASO # 0.1 10^3/uL (0.0-0.2); BASO % 0.8 % (0.0-1.0); EOS # 0.1 10^3/uL (0.0-0.5); EOS % 1.8 % (0.0-3.0); HEMATOCRIT 41.9 % (36.0-47.0); HEMOGLOBIN 13.1 g/dl (12.0-15.5); LYMPH # 1.4 10^3/uL (1.5-5.0); MEAN CORPUSCULAR HEMOGLOBIN 26.4 pg (27.0-33.0); MEAN CORPUSCULAR HGB CONC 31.3 g/dl (32.0-36.5); MEAN CORPUSCULAR VOLUME 84.5 fl (80.0-96.0); MONO # 0.5 10^3/uL (0.0-0.8); MONO % 7.2 % (2.0-8.0); NEUTROPHILS # 4.5 10^3/uL (1.5-8.5); PLATELET COUNT, AUTOMATED 383 10^3/uL (150-450); RED BLOOD COUNT 4.96 10^6/uL (4.00-5.40); WHITE BLOOD COUNT 6.6 10^3/uL (4.0-10.0)
[2023-06-29 18:26] LABS: ALBUMIN 3.6 G/DL (3.2-5.2); ALKALINE PHOSPHATASE 69 U/L (46-116); ALT/SGPT 29 U/L (7.0-40); AST/SGOT 18 U/L (<34); BILIRUBIN,TOTAL 0.6 MG/DL (0.3-1.2); BLOOD UREA NITROGEN 10 MG/DL (9-23); CALCIUM LEVEL 9.6 MG/DL (8.5-10.1); CARBON DIOXIDE LEVEL 25 MMOL/L (20-31); CHLORIDE LEVEL 103 MMOL/L (98-107); CREATININE FOR GFR 0.93 MG/DL (0.55-1.30); FERRITIN 143.3 NG/ML (7.3-270.7); GLOMERULAR FILTRATION RATE > 60.0 (>58); GLUCOSE, FASTING 106 MG/DL (60-100); IRON (FE) 68 UG/DL (50-170); MAGNESIUM LEVEL 1.7 MG/DL (1.8-2.4); PERCENT SATURATION 22.4 % (13.2-45.0); PHOSPHORUS LEVEL 3.6 MG/DL (2.5-4.9); POTASSIUM SERUM 3.7 MMOL/L (3.5-5.1); SODIUM LEVEL 140 MMOL/L (136-145); TOTAL 25(OH) VITAMIN D 17.9 NG/ML (20.0-100.0); TOTAL IRON BINDING CAPACITY 303 UG/DL (250-425); TOTAL PROTEIN 7.3 G/DL (5.7-8.2); VITAMIN B12 LEVEL 1094 PG/ML (211-911)
[2023-06-29 18:32] LABS: HEMATOCRIT 41.8 % (36.0-47.0)
[2023-06-29 18:56] LABS: HEMOGLOBIN A1c 5.1 % (4.0-6.0)
== END ==
LOC: M WUC 12:27
PROVIDERS: ATTEND Surgery
DX: K91.2 Postsurgical malabsorption, not elsewhere classified (principal); Z98.84 Bariatric surgery status; E55.9 Vitamin D deficiency, unspecified; Z86.39 Personal history of other endocrine, nutritional and metabolic disease

== ENCOUNTER → 2024-03-30 | Outpatient (REF) | payer OTHER ==
[2024-03-30 18:02] LABS: BASO % 0.7 % (0.0-1.0); EOS # 0.1 10^3/uL (0.0-0.5); EOS % 1.6 % (0.0-3.0); HEMATOCRIT 36.5 % (36.0-47.0); HEMOGLOBIN 12.1 g/dl (12.0-15.5); LYMPH # 1.2 10^3/uL (1.5-5.0); LYMPH % 26.4 % (24.0-44.0); MEAN CORPUSCULAR HEMOGLOBIN 27.9 pg (27.0-33.0); MEAN CORPUSCULAR HGB CONC 33.2 g/dl (32.0-36.5); MEAN CORPUSCULAR VOLUME 84.1 fl (80.0-96.0); MONO # 0.3 10^3/uL (0.0-0.8); MONO % 6.6 % (2.0-8.0); NEUTROPHILS # 2.8 10^3/uL (1.5-8.5); NEUTROPHILS % 64.5 % (36.0-66.0); PLATELET COUNT, AUTOMATED 290 10^3/uL (150-450); RED BLOOD COUNT 4.34 10^6/uL (4.00-5.40); WHITE BLOOD COUNT 4.4 10^3/uL (4.0-10.0)
[2024-03-30 18:15] LABS: HEMOGLOBIN A1c 4.8 % (4.0-6.0)
[2024-03-30 18:42] LABS: ALBUMIN 3.2 G/DL (3.2-5.2); ALKALINE PHOSPHATASE 99 U/L (46-116); ALT/SGPT 21 U/L (7.0-40); AST/SGOT 15 U/L (<34); BILIRUBIN,TOTAL 0.3 MG/DL (0.3-1.2); BLOOD UREA NITROGEN 11 MG/DL (9-23); CALCIUM LEVEL 8.6 MG/DL (8.5-10.1); CARBON DIOXIDE LEVEL 27 MMOL/L (20-31); CHLORIDE LEVEL 107 MMOL/L (98-107); CHOLESTEROL LEVEL 151 MG/DL (<200); CHOLESTEROL RISK RATIO 2.55 (<5); CREATININE FOR GFR 0.83 MG/DL (0.55-1.30); GLOMERULAR FILTRATION RATE > 60.0 (>58); GLUCOSE, FASTING 86 MG/DL (60-100); HDL CHOLESTEROL 59.1 MG/DL (>40); IRON (FE) 25 UG/DL (50-170); LDL CHOLESTEROL 77.1 MG/DL (<100); NON-HDL-C 91.9 MG/DL; PERCENT SATURATION 8.5 % (13.2-45.0); POTASSIUM SERUM 4.4 MMOL/L (3.5-5.1); SODIUM LEVEL 140 MMOL/L (136-145); TOTAL IRON BINDING CAPACITY 295 UG/DL (250-425); TOTAL PROTEIN 6.3 G/DL (5.7-8.2); TRIGLYCERIDES LEVEL 74 MG/DL (<150)
[2024-03-30 18:43] LABS: FOLATE 22.3 NG/ML (>5.4); VITAMIN B12 LEVEL 841 PG/ML (211-911)
[2024-03-30 18:44] LABS: FREE T4 0.96 NG/DL (0.89-1.76); THYROID STIMULATING HORMONE 2.897 uIU/ML (0.55-4.78)
[2024-03-30 18:58] LABS: HCG, SERUM QUALITATIVE NEGATIVE (NEGATIVE)
== END ==
LOC: M LAB REF 16:39
PROVIDERS: ATTEND Nurse Practitioner Family
DX: R42 Dizziness and giddiness (principal); Z68.36 Body mass index [BMI] 36.0-36.9, adult; E66.9 Obesity, unspecified

== ENCOUNTER 2024-07-05 08:01 | Day surgery (SDC) | payer MEDICAID ==
[~2024-07-05] VITALS: Ht 180.3 cm; Wt 95.7 kg
[~2024-07-05 08:01] MED LIST changes: +AMLO2.5T3 PO; +AZEL1SPR3; +DULO1CAP6 PO; +FERR325T82 PO; +HYDR-3363 PO; +LINZ145C PO; +LORA-1041 PO; +MULTTAB61 PO; +OMEP40CA5 PO
[2024-07-05] MEDS ORDERED: propofoL 200 MG/20 ML VIAL As Ordered ONE (09:00)
[2024-07-05] MEDS: NS 1,000 ML IV ONE (09:25)
[2024-07-05 09:28] VITALS: TEMP 96.3
[2024-07-05 10:44] VITALS: BP 142/87; O2SAT 100
== END 2024-07-05 10:55 | disposition home or self-care (01) ==
LOC: M OPP 08:01
PROVIDERS: ATTEND Surgery
DX: D50.9 Iron deficiency anemia, unspecified (principal); K44.9 Diaphragmatic hernia without obstruction or gangrene; Z98.84 Bariatric surgery status; Z79.899 Other long term (current) drug therapy

== ENCOUNTER → 2024-07-12 | Outpatient (CLI) | payer MEDICAID, OTHER ==
[2024-07-12 14:24] LABS: HEMATOCRIT 38.3 % (36.0-47.0)
[2024-07-12 14:26] LABS: HEMATOCRIT 38.3 % (36.0-47.0); HEMOGLOBIN 12.4 g/dl (12.0-15.5); MEAN CORPUSCULAR HEMOGLOBIN 27.8 pg (27.0-33.0); MEAN CORPUSCULAR HGB CONC 32.4 g/dl (32.0-36.5); MEAN CORPUSCULAR VOLUME 85.9 fl (80.0-96.0); PLATELET COUNT, AUTOMATED 346 10^3/uL (150-450); RED BLOOD COUNT 4.46 10^6/uL (4.00-5.40); WHITE BLOOD COUNT 6.5 10^3/uL (4.0-10.0)
[2024-07-12 14:54] LABS: IRON (FE) 114 UG/DL (50-170); PERCENT SATURATION 36.8 % (13.2-45.0); TOTAL IRON BINDING CAPACITY 310 UG/DL (250-425)
[2024-07-12 14:55] LABS: ALBUMIN 3.4 G/DL (3.2-5.2); ALKALINE PHOSPHATASE 91 U/L (46-116); ALT/SGPT 28 U/L (7.0-40); AST/SGOT 18 U/L (<34); BILIRUBIN,TOTAL 0.5 MG/DL (0.3-1.2); BLOOD UREA NITROGEN 11 MG/DL (9-23); CALCIUM LEVEL 9.1 MG/DL (8.5-10.1); CARBON DIOXIDE LEVEL 29 MMOL/L (20-31); CHLORIDE LEVEL 108 MMOL/L (98-107); CREATININE FOR GFR 0.89 MG/DL (0.55-1.30); GLOMERULAR FILTRATION RATE > 60.0 (>58); GLUCOSE, FASTING 74 MG/DL (60-100); MAGNESIUM LEVEL 2.1 MG/DL (1.8-2.4); PHOSPHORUS LEVEL 3.9 MG/DL (2.5-4.9); SODIUM LEVEL 143 MMOL/L (136-145); TOTAL PROTEIN 6.7 G/DL (5.7-8.2)
[2024-07-12 14:59] LABS: FERRITIN 126.5 NG/ML (7.3-270.7); HEMOGLOBIN A1c 5.1 % (4.0-6.0)
[2024-07-12 15:00] LABS: VITAMIN B12 LEVEL 550 PG/ML (211-911)
== END ==
LOC: M WUC 10:30
PROVIDERS: ATTEND Physician Assistant Surgical
DX: Z98.84 Bariatric surgery status (principal)

== ENCOUNTER → 2025-05-21 | Outpatient (REF) | payer OTHER ==
[2025-05-21 18:48] LABS: BASO # 0.1 10^3/uL (0.0-0.2); BASO % 0.8 % (0.0-1.0); EOS # 0.2 10^3/uL (0.0-0.5); EOS % 2.3 % (0.0-3.0); LYMPH # 1.7 10^3/uL (1.5-5.0); LYMPH % 25.8 % (24.0-44.0); MONO # 0.4 10^3/uL (0.0-0.8); MONO % 6.4 % (2.0-8.0); NEUTROPHILS # 4.2 10^3/uL (1.5-8.5); NEUTROPHILS % 64.4 % (36.0-66.0); PLATELET COUNT, AUTOMATED 303 10^3/uL (150-450)
[2025-05-21 18:51] LABS: IRON (FE) 84.0 UG/DL (50-170); PERCENT SATURATION 25.5 % (13.2-45.0)
[2025-05-21 18:52] LABS: CALCIUM LEVEL 8.7 MG/DL (8.5-10.1); CARBON DIOXIDE LEVEL 26.0 MMOL/L (20-31); CHLORIDE LEVEL 105.0 MMOL/L (98-107); CHOLESTEROL LEVEL 183.0 MG/DL (<200); CHOLESTEROL RISK RATIO 2.21 (<5); CREATININE FOR GFR 0.88 MG/DL (0.55-1.30); GLOMERULAR FILTRATION RATE 83.1 (>58); LDL CHOLESTEROL 85.0 MG/DL (<100); NON-HDL-C 100.2 MG/DL; POTASSIUM SERUM 4.4 MMOL/L (3.5-5.1); SODIUM LEVEL 142.0 MMOL/L (136-145); TRIGLYCERIDES LEVEL 76.0 MG/DL (<150)
[2025-05-21 19:17] LABS: ESTIMATED AVERAGE GLUCOSE 94.0 MG/DL (60-110)
== END ==
LOC: M LAB REF 17:24
PROVIDERS: ATTEND Nurse Practitioner Family
DX: B33.8 Other specified viral diseases (principal); I10 Essential (primary) hypertension; E61.1 Iron deficiency; Z68.36 Body mass index [BMI] 36.0-36.9, adult; E66.9 Obesity, unspecified

== ENCOUNTER → 2025-08-26 | Outpatient (CLI) | payer OTHER | LOC: M SOG 10:17 | PROVIDERS: ATTEND Orthopaedic Surgery | DX: M25.531 Pain in right wrist (principal); M25.532 Pain in left wrist ==

== ENCOUNTER → 2025-10-11 | Outpatient (CLI) | payer OTHER ==
[~2025-10-11] MED LIST changes: -LABE100T6; +LABE100T91
[2025-10-11 12:11] LABS: BASO # 0.1 10^3/uL (0.0-0.2); BASO % 1.3 % (0.0-1.0); EOS # 0.1 10^3/uL (0.0-0.5); EOS % 2.9 % (0.0-3.0); LYMPH # 1.3 10^3/uL (1.5-5.0); LYMPH % 26.7 % (24.0-44.0); MONO # 0.3 10^3/uL (0.0-0.8); MONO % 6.7 % (2.0-8.0); NEUTROPHILS # 3.0 10^3/uL (1.5-8.5); NEUTROPHILS % 62.2 % (36.0-66.0); PLATELET COUNT, AUTOMATED 337 10^3/uL (150-450)
[2025-10-11 12:18] LABS: ALT/SGPT 25.0 U/L (7.0-40); AST/SGOT 25.0 U/L (<34); CALCIUM LEVEL 9.0 MG/DL (8.5-10.1); CARBON DIOXIDE LEVEL 31.0 MMOL/L (20-31); CHLORIDE LEVEL 104.0 MMOL/L (98-107); CREATININE FOR GFR 0.92 MG/DL (0.55-1.30); GLOMERULAR FILTRATION RATE 78.7 (>58); POTASSIUM SERUM 4.5 MMOL/L (3.5-5.1); SODIUM LEVEL 138.0 MMOL/L (136-145)
[2025-10-11 12:32] LABS: ESTIMATED AVERAGE GLUCOSE 94.0 MG/DL (60-110)
[2025-10-11 12:56] LABS: INR 0.94
== END ==
LOC: M WUC 09:39
PROVIDERS: ATTEND Orthopaedic Surgery
DX: G56.03 Carpal tunnel syndrome, bilateral upper limbs (principal)